=== PATIENT | female | born 1990 | race Caucasian/White ===

== ENCOUNTER 2020-10-27 14:32 | Inpatient (IN) ==
[2020-10-27] MEDS ORDERED: SODIUM CHLORIDE 0.9% 500 ML IV STA (15:03)
[2020-10-27] MEDS ORDERED: PIPERACILLIN/TAZOBACTAM 3,375 MG in SODIUM CHLORIDE 0.9% 100 ML IV STA (15:03)
[2020-10-27 15:45] LABS: Basophils % 0.3 % (0.0-0.8); Eosinophils # 0.1 10*3/uL (0.0-0.87); Eosinophils % 0.8 % (0.00-10.9); Hematocrit 43.2 VOL% (35.7-47.0); Hemoglobin 13.6 GM/DL (12.0-16.0); Immature Granulocytes % 0.4 %; Immature Granulocytes Absolute 0.07 #; Lymphocytes # 2.2 10*3/uL (1.4-4.0); Lymphocytes % 13.7 % (21.3-54.2); Mean Corpuscular HGB Conc 31.5 GM/DL (32-36); Mean Corpuscular Volume 83.4 FL (87-102); Mean Platelet Volume 10.8 FL (9.6-12.0); Monocytes % 3.9 % (1.7-12.7); Neutrophils % 80.9 % (38.7-73.9); Platelet Count 324 T/CUMM (130-400); Red Blood Count 5.18 MC/CUMM (3.8-5.5); Red Cell Distribution Width 15.2 % (9.3-17.3); White Blood Count 15.7 T/CUMM (4-12)
[2020-10-27 16:08] LABS: Albumin 3.9 G/DL (3.4-5.0); Bilirubin,Total 3.3 MG/DL (0.2-1.0); Calcium 8.6 MG/DL (8.5-10.1); Osmolality,Calculated 274.5 MOS/KG (273-304); Potassium 3.8 MMOL/L (3.5-5.1); Total Protein 7.6 G/DL (6.4-8.2)
[2020-10-27] MEDS ORDERED: ALBUTEROL/IPRATROPIUM 3 ML NEB RESP TX PRN (16:31)
[2020-10-27] MEDS ORDERED: BISACODYL 5 MG TABLET PO PRN (16:31)
[2020-10-27] MEDS ORDERED: ACETAMINOPHEN 325 MG TABLET PO PRN (16:31)
[2020-10-27] MEDS ORDERED: ONDANSETRON 4 MG/2 ML VIAL ONE (16:47)
[2020-10-27] MEDS ORDERED: HYDROmorphone 2 MG/1 ML VIAL ONE (16:47)
[2020-10-27] MEDS: LACTATED RINGERS 1,000 ML IV SCH ×2 (16:50→23:40)
[2020-10-27] MEDS: HYDROmorphone 2 MG/1 ML VIAL IV PRN ×2 (16:53→21:15)
[2020-10-27] MEDS: ONDANSETRON 4 MG/2 ML VIAL IV PRN (16:53)
[2020-10-27] MEDS ORDERED: LACTATED RINGERS 1,000 ML IV SCH (17:00)
[2020-10-27] MEDS: KETOROLAC 30 MG/1 ML VIAL IV PRN (18:29)
[2020-10-27] MEDS: PIPERACILLIN/TAZOBACTAM 3,375 MG in SODIUM CHLORIDE 0.9% 100 ML IV SCH (23:41)
[2020-10-28] MEDS: KETOROLAC 30 MG/1 ML VIAL IV PRN ×3 (00:18→19:26)
[2020-10-28] MEDS: ONDANSETRON 4 MG/2 ML VIAL IV PRN ×3 (00:22→19:31)
[2020-10-28] MEDS: LACTATED RINGERS 1,000 ML IV SCH ×4 (04:02→22:42)
[2020-10-28] MEDS: HYDROmorphone 2 MG/1 ML VIAL IV PRN ×4 (04:45→22:42)
[2020-10-28 05:31] LABS: Basophils % 0.3 % (0.0-0.8); Eosinophils # 0.2 10*3/uL (0.0-0.87); Eosinophils % 1.4 % (0.00-10.9); Hematocrit 40.4 VOL% (35.7-47.0); Hemoglobin 12.6 GM/DL (12.0-16.0); Immature Granulocytes % 0.6 %; Immature Granulocytes Absolute 0.07 #; Lymphocytes # 2.3 10*3/uL (1.4-4.0); Lymphocytes % 18.5 % (21.3-54.2); Mean Corpuscular HGB Conc 31.2 GM/DL (32-36); Monocytes % 3.9 % (1.7-12.7); Neutrophils % 75.3 % (38.7-73.9); Platelet Count 276 T/CUMM (130-400); Red Blood Count 4.81 MC/CUMM (3.8-5.5); Red Cell Distribution Width 15.4 % (9.3-17.3); White Blood Count 12.7 T/CUMM (4-12)
[2020-10-28 05:48] LABS: Albumin 3.3 G/DL (3.4-5.0); Bilirubin,Total 3.9 MG/DL (0.2-1.0); Calcium 8.7 MG/DL (8.5-10.1); Osmolality,Calculated 272.7 MOS/KG (273-304); Potassium 3.4 MMOL/L (3.5-5.1); Total Protein 6.7 G/DL (6.4-8.2)
[2020-10-28] MEDS: PIPERACILLIN/TAZOBACTAM 3,375 MG in SODIUM CHLORIDE 0.9% 100 ML IV SCH ×2 (06:16→16:16)
[2020-10-28] MEDS: PANTOPRAZOLE 40 MG VIAL IV SCH (08:15)
[2020-10-28] MEDS ORDERED: INDOMETHACIN SUPP 50 MG SUPP RECTAL ONE ×2 (10:52→11:01)
[2020-10-28 11:52] LABS: PT Patient Result 11.2 SECS (10.5-12.0)
[2020-10-28] MEDS ORDERED: fentaNYL 100 MCG/2 ML VIAL ONE (13:12)
[2020-10-28] MEDS ORDERED: MIDAZOLAM 2 MG/2 ML VIAL ONE (13:12)
[2020-10-28] MEDS ORDERED: ONDANSETRON 4 MG/2 ML VIAL ONE ×2 (13:13→14:39)
[2020-10-28] MEDS ORDERED: LIDOCAINE 2% 5 ML VIAL ONE (13:13)
[2020-10-28] MEDS ORDERED: propofoL 200 MG/20 ML VIAL IV ONE (13:13)
[2020-10-28] MEDS ORDERED: SEVOFLURANE 1 UNIT/15 MINUTE INH ONE (13:13)
[2020-10-28] MEDS ORDERED: SUCCINYLCHOLINE 200 MG/10 ML VIAL ONE (13:13)
[2020-10-28] MEDS ORDERED: ROCURONIUM 50 MG/5 ML VIAL IV ONE (14:39)
[2020-10-28] MEDS ORDERED: GLYCOPYRROLATE 0.4 MG/2 ML VIAL ONE (14:54)
[2020-10-28] MEDS ORDERED: NEOSTIGMINE 10 MG/10 ML VIAL ONE (14:54)
[2020-10-29] MEDS: PIPERACILLIN/TAZOBACTAM 3,375 MG in SODIUM CHLORIDE 0.9% 100 ML IV SCH ×3 (00:34→15:17)
[2020-10-29] MEDS: HYDROmorphone 2 MG/1 ML VIAL IV PRN ×4 (03:38→20:24)
[2020-10-29 06:10] LABS: Basophils % 0.1 % (0.0-0.8); Eosinophils # 0.1 10*3/uL (0.0-0.87); Eosinophils % 0.7 % (0.00-10.9); Hematocrit 36.9 VOL% (35.7-47.0); Hemoglobin 12.1 GM/DL (12.0-16.0); Immature Granulocytes % 0.5 %; Immature Granulocytes Absolute 0.09 #; Lymphocytes # 1.5 10*3/uL (1.4-4.0); Lymphocytes % 8.5 % (21.3-54.2); Mean Corpuscular HGB Conc 32.8 GM/DL (32-36); Mean Corpuscular Volume 81.6 FL (87-102); Mean Platelet Volume 10.7 FL (9.6-12.0); Monocytes % 4.4 % (1.7-12.7); Neutrophils % 85.8 % (38.7-73.9); Platelet Count 255 T/CUMM (130-400); Red Blood Count 4.52 MC/CUMM (3.8-5.5); Red Cell Distribution Width 15.2 % (9.3-17.3)
[2020-10-29] MEDS: LACTATED RINGERS 1,000 ML IV SCH ×2 (06:23→11:54)
[2020-10-29 06:31] LABS: Albumin 3.1 G/DL (3.4-5.0); Calcium 8.4 MG/DL (8.5-10.1); Osmolality,Calculated 271.8 MOS/KG (273-304); Potassium 3.3 MMOL/L (3.5-5.1); Total Protein 6.6 G/DL (6.4-8.2)
[2020-10-29] MEDS: PANTOPRAZOLE 40 MG VIAL IV SCH (08:23)
[2020-10-29] MEDS: KETOROLAC 30 MG/1 ML VIAL IV PRN (11:53)
[2020-10-29] MEDS ORDERED: INDOCYANINE GREEN 25 MG VIAL IV ONE (14:55)
[2020-10-29] MEDS: ONDANSETRON 4 MG/2 ML VIAL IV PRN (17:23)
[2020-10-30] MEDS: PIPERACILLIN/TAZOBACTAM 3,375 MG in SODIUM CHLORIDE 0.9% 100 ML IV SCH (00:04)
[2020-10-30] MEDS: HYDROmorphone 2 MG/1 ML VIAL IV PRN ×2 (00:34→12:55)
[2020-10-30] MEDS: LACTATED RINGERS 1,000 ML IV SCH ×8 (04:35→16:43)
[2020-10-30 06:07] LABS: Basophils # 0.1 10*3/uL (0.0-0.2); Basophils % 0.3 % (0.0-0.8); Eosinophils # 0.3 10*3/uL (0.0-0.87); Eosinophils % 1.8 % (0.00-10.9); Hematocrit 34.1 VOL% (35.7-47.0); Hemoglobin 10.9 GM/DL (12.0-16.0); Immature Granulocytes % 0.4 %; Immature Granulocytes Absolute 0.06 #; Lymphocytes # 2.2 10*3/uL (1.4-4.0); Lymphocytes % 15.2 % (21.3-54.2); Mean Corpuscular Volume 82.8 FL (87-102); Mean Platelet Volume 11.5 FL (9.6-12.0); Monocytes % 5.7 % (1.7-12.7); Neutrophils % 76.6 % (38.7-73.9); Platelet Count 235 T/CUMM (130-400); Red Blood Count 4.12 MC/CUMM (3.8-5.5); Red Cell Distribution Width 15.5 % (9.3-17.3); White Blood Count 14.5 T/CUMM (4-12)
[2020-10-30 06:26] LABS: Albumin 2.8 G/DL (3.4-5.0); Bilirubin,Total 1.5 MG/DL (0.2-1.0); Osmolality,Calculated 271.7 MOS/KG (273-304); Potassium 2.9 MMOL/L (3.5-5.1); Total Protein 6.2 G/DL (6.4-8.2)
[2020-10-30] MEDS ORDERED: PROMETHAZINE INJ 25 MG in SODIUM CHLORIDE 0.9% 50 ML IV PRN (06:27)
[2020-10-30] MEDS ORDERED: MEPERIDINE 25 MG/1 ML VIAL IV PRN (06:27)
[2020-10-30] MEDS ORDERED: ONDANSETRON 4 MG/2 ML VIAL IV PRN (06:27)
[2020-10-30] MEDS ORDERED: diphenhydrAMINE 50 MG/1 ML VIAL IV PRN (06:27)
[2020-10-30] MEDS ORDERED: HYDROmorphone 2 MG/1 ML VIAL IV PRN (06:27)
[2020-10-30] MEDS ORDERED: LIDOCAINE 1%/EPI INJ 20 ML VIAL ONE (06:37)
[2020-10-30] MEDS ORDERED: TISSUE ADHESIVE 1 EACH APPLICATOR TOP ONE (06:37)
[2020-10-30] MEDS ORDERED: BUPIVACAINE MPF 0.25% 30 ML VIAL ONE (06:37)
[2020-10-30] MEDS ORDERED: ONDANSETRON 4 MG/2 ML VIAL ONE (06:59)
[2020-10-30] MEDS ORDERED: fentaNYL 100 MCG/2 ML VIAL ONE (06:59)
[2020-10-30] MEDS ORDERED: propofoL 200 MG/20 ML VIAL IV ONE (06:59)
[2020-10-30] MEDS ORDERED: KETOROLAC 30 MG/1 ML VIAL ONE (06:59)
[2020-10-30] MEDS ORDERED: SEVOFLURANE 1 UNIT/15 MINUTE INH ONE (06:59)
[2020-10-30] MEDS ORDERED: DEXAMETHASONE 4 MG/1 ML VIAL ONE (06:59)
[2020-10-30] MEDS ORDERED: LIDOCAINE 2% 5 ML VIAL ONE (06:59)
[2020-10-30] MEDS ORDERED: MIDAZOLAM 2 MG/2 ML VIAL ONE ×2 (06:59→07:57)
[2020-10-30] MEDS ORDERED: ROCURONIUM 50 MG/5 ML VIAL IV ONE (06:59)
[2020-10-30] MEDS ORDERED: INDOCYANINE GREEN 25 MG VIAL IV ONE (07:00)
[2020-10-30] MEDS ORDERED: MIDAZOLAM 2 MG/2 ML VIAL IV ONE (08:06)
[2020-10-30] MEDS ORDERED: POTASSIUM CHLORIDE RIDER 20 MEQ/200 ML PREMIX IV ONE (08:16)
[2020-10-30] MEDS: PANTOPRAZOLE 40 MG VIAL IV SCH (08:47)
[2020-10-30] MEDS: POTASSIUM CHLORIDE RIDER 10 MEQ/100 ML PREMIX IV SCH ×6 (09:30→15:23)
[2020-10-30] MEDS ORDERED: NEOSTIGMINE 10 MG/10 ML VIAL ONE (09:38)
[2020-10-30] MEDS ORDERED: GLYCOPYRROLATE 0.4 MG/2 ML VIAL ONE (09:38)
[2020-10-31] MEDS: LACTATED RINGERS 1,000 ML IV SCH ×2 (00:50→04:13)
[2020-10-31 07:03] LABS: Basophils % 0.1 % (0.0-0.8); Eosinophils # 0.1 10*3/uL (0.0-0.87); Eosinophils % 0.9 % (0.00-10.9); Hemoglobin 10.5 GM/DL (12.0-16.0); Immature Granulocytes % 0.4 %; Immature Granulocytes Absolute 0.05 #; Lymphocytes # 2.4 10*3/uL (1.4-4.0); Lymphocytes % 17.8 % (21.3-54.2); Mean Corpuscular HGB Conc 31.8 GM/DL (32-36); Mean Corpuscular Volume 83.1 FL (87-102); Monocytes % 4.9 % (1.7-12.7); Neutrophils % 75.9 % (38.7-73.9); Platelet Count 261 T/CUMM (130-400); Red Blood Count 3.97 MC/CUMM (3.8-5.5); Red Cell Distribution Width 15.7 % (9.3-17.3); White Blood Count 13.6 T/CUMM (4-12)
[2020-10-31 07:21] LABS: Albumin 2.8 G/DL (3.4-5.0); Bilirubin,Direct 0.52 MG/DL (0.0-0.20); Bilirubin,Total 0.9 MG/DL (0.2-1.0); Calcium 8.3 MG/DL (8.5-10.1); Osmolality,Calculated 276.4 MOS/KG (273-304); Potassium 3.6 MMOL/L (3.5-5.1); Total Protein 6.4 G/DL (6.4-8.2)
[2020-10-31 08:18] VITALS: BP 139/76
[2020-10-31] MEDS: PANTOPRAZOLE 40 MG VIAL IV SCH (09:46)
== END 2020-10-31 12:01 | disposition home or self-care (01) | DRG 418 ==
LOC: N.ED 14:32 → N.EDINP 16:31 → N.3E 17:56
PROVIDERS: ADMIT Surgery; ATTEND Surgery
PROC: ERCPWSP (ICD-10-PCS; 2020-10-28 12:30)